=== PATIENT | female | born 1950 | race Caucasian/White ===

== ENCOUNTER 2017-08-26 16:21 | Emergency (ER) | payer OTHER ==
[2017-08-26 16:38] VITALS: TEMP 37; Ht 165.1 cm
--- NOTE | 2017-08-26 16:46 | EMERGENCY ROOM VISIT NOTE ---
History Report prepared by Umm: Theron Dash Under the Supervision of: Dr. Simeon Smith D.O. First contact with patient: 16:30 Chief Complaint: MENTAL HEALTH EVALUATION Stated Complaint: MR History of Present Illness The patient is a 66 year old female who presents to the Emergency Room with complaints of a persistent need for a mental health evaluation over the past few days. Per the psychiatric casework specialist, the patient is living at the [facility]. She was seen at [facility] earlier this afternoon after an appointment was made by [facility], and then the patient was sent from [facility] to here for inpatient treatment. The patient states that she has been feeling depressed recently, mostly because it is "that time of the year". She notes that the staff at the detention [facility] found a knife in the patient's room, and that prompted the patient to get further evaluation. The patient admits that she has had thoughts to hurt herself over the past few days , and says that she has had problems with these thoughts in the past a long time ago. She notes that in the past she has been admitted to a hospital ( including [facility]) for mental health. She says that she does take medications for her depression and anxiety, as well as for seizures and blood pressure. The patient denies any recent illnesses. She states that she does not smoke cigarettes, drink alcohol, or use recreational drugs. The patient notes a previous suicide attempt, when she took a razor and cut her throat. She denies ever hearing voices. Source of History: patient, other (psych casework specialist) Onset: Over past few days Position: other (global - need for mental health evaluation) Symptom Intensity: thoughts of hurting herself Quality: other (worsening depression) Timing: other (persistent) Note: Associated symptoms: Knife found in patient's room. Denies recent illnesses. Review of Systems See HPI for pertinent positives & negatives. A total of 10 systems reviewed and were otherwise negative. Past Medical & Surgical Medical Problems: (1) Bipolar disorder (2) Depression (3) HTN (hypertension) (4) Seizures Family History No pertinent family history Social History Smokeless Tobacco Use: No Marital Status: single Housing Status: assisted living Occupation Status: other (unknown) Current/Historical Medications Scheduled Acetaminophen (Tylenol), 650 MG PO TID Allopurinol (Zyloprim), 100 MG PO DAILY Bupropion HCl (Bupropion HCl Sr), 150 MG PO DAILY Calcium Carbonate (Antacid) (Saul-Gest Antacid), 1 TAB PO HS Divalproex Sodium (Depakote Er), 1,500 MG PO HS Furosemide (Lasix), 20 MG PO 1700 Furosemide (Lasix), 40 MG PO QAM Levothyroxine Sodium (Synthroid), 175 MCG PO DAILY Lurasidone Hcl (Latuda), 60 MG PO QPM Melatonin (Kp Melatonin), 6 MG PO HS Olanzapine (Zyprexa), 5 MG PO HS Oxybutynin Chloride (Oxybutynin Chloride ER), 5 MG PO HS Potassium Ext Rel (Klor-Con), 10 MEQ PO BID Propranolol (Inderal), 20 MG PO DAILY Allergies Coded Allergies: Meperidine (Unverified Allergy, Unknown, UNKNOWN, 08/26/17) Physical Exam Vital Signs Date Time Temp Pulse Resp B/P (MAP) Pulse Ox O2 Delivery O2 Flow Rate FiO2 08/26/17 23:26 64 18 163/94 96 Room Air 08/26/17 18:07 86 16 144/89 91 Room Air 08/26/17 16:38 37.0 84 16 119/92 96 Room Air Physical Exam GENERAL: Patient is awake, alert, anxious appearing. EYES: The conjunctivae are clear. The pupils are round and reactive. EARS, NOSE, MOUTH AND THROAT: The nose is without any evidence of any deformity. Mucous membranes are moist tongue is midline NECK: The neck is nontender and supple. RESPIRATORY: Normal respiratory effort is noted there is no evidence of wheezing rhonchi or rales CARDIOVASCULAR: Regular rate and rhythm noted there no murmurs rubs or gallops normal S1 normal S2 GASTROINTESTINAL: The abdomen is soft. Bowel sounds are present in all quadrants. Abdomen is nontender MUSCULOSKELETAL/EXTREMITIES: There is no evidence of gross deformity full range of motion is noted in the hips and shoulders SKIN: Pedal edema bilaterally. Skin was warm and dry. NEUROLOGIC: Patient is awake alert and oriented x3. PSYCH: Affect was flat. Patient makes good eye contact. Continues to admit to suicidal ideation with plan to cut herself. Medical Decision & Procedures Laboratory Results 08/26/17 17:22 Red Blood Count 4.21, Mean Corpuscular Volume 97.9, Mean Corpuscular Hemoglobin 31.4, Mean Corpuscular Hemoglobin Concent 32.0, Mean Platelet Volume 9.1, Neutrophils (%) (Auto) 60.8, Lymphocytes (%) (Auto) 29.2, Monocytes (%) (Auto) 8.1, Eosinophils (%) (Auto) 1.3, Basophils (%) (Auto) 0.3, Neutrophils # (Auto) 6.31, Lymphocytes # (Auto) 3.03, Monocytes # (Auto) 0.84, Eosinophils # (Auto) 0.14, Basophils # (Auto) 0.03 08/26/17 17:22 Test 08/26/17 17:22 08/26/17 17:40 White Blood Count 10.38 K/uL (4.8-10.8) Red Blood Count 4.21 M/uL (4.2-5.4) Hemoglobin 13.2 g/dL (12.0-16.0) Hematocrit 41.2 % (37-47) Mean Corpuscular Volume 97.9 fL (80-100) Mean Corpuscular Hemoglobin 31.4 pg (25-34) Mean Corpuscular Hemoglobin Concent 32.0 g/dl (32-36) Platelet Count 145 K/uL (130-400) Mean Platelet Volume 9.1 fL (7.4-10.4) Neutrophils (%) (Auto) 60.8 % Lymphocytes (%) (Auto) 29.2 % Monocytes (%) (Auto) 8.1 % Eosinophils (%) (Auto) 1.3 % Basophils (%) (Auto) 0.3 % Neutrophils # (Auto) 6.31 K/uL (1.4-6.5) Lymphocytes # (Auto) 3.03 K/uL (1.2-3.4) Monocytes # (Auto) 0.84 K/uL (0.11-0.59) Eosinophils # (Auto) 0.14 K/uL (0-0.5) Basophils # (Auto) 0.03 K/uL (0-0.2) RDW Standard Deviation 54.2 fL (36.4-46.3) RDW Coefficient of Variation 15.2 % (11.5-14.5) Immature Granulocyte % (Auto) 0.3 % Immature Granulocyte # (Auto) 0.03 K/uL (0.00-0.02) Anion Gap 7.0 mmol/L (3-11) Estimated GFR () 31.9 Estimated GFR (Non- 27.5 BUN/Creatinine Ratio 14.1 (10-20) Calcium Level 8.5 mg/dl (8.5-10.1) Total Bilirubin 0.3 mg/dl (0.2-1) Direct Bilirubin < 0.1 mg/dl (0-0.2) Aspartate Amino Transf (AST/SGOT) 13 U/L (15-37) Alanine Aminotransferase (ALT/SGPT) 29 U/L (12-78) Alkaline Phosphatase 79 U/L (45-117) Total Protein 7.3 gm/dl (6.4-8.2) Albumin 3.1 gm/dl (3.4-5.0) Thyroid Stimulating Hormone (TSH) 0.496 uIu/ml (0.300-4.500) Free Thyroxine 1.03 ng/dl (0.80-1.60) Valproic Acid (Depakene) Level 64 mcg/ml (50-100) Ethyl Alcohol mg/dL < 3.0 mg/dl (0-3) Urine Color YELLOW Urine Appearance CLEAR (CLEAR) Urine pH 7.0 (4.5-7.5) Urine Specific [place] 1.009 (1.000-1.030) Urine Protein NEG (NEG) Urine Glucose (UA) NEG (NEG) Urine Ketones NEG (NEG) Urine Occult Blood NEG (NEG) Urine Nitrite NEG (NEG) Urine Bilirubin NEG (NEG) Urine Urobilinogen NEG (NEG) Urine Leukocyte Esterase TRACE (NEG) Urine WBC (Auto) 1-5 /hpf (0-5) Urine RBC (Auto) 0-4 /hpf (0-4) Urine Hyaline Casts (Auto) 0 /lpf (0-5) Urine Epithelial Cells (Auto) 5-10 /lpf (0-5) Urine Bacteria (Auto) NEG (NEG) Urine Opiates Screen NEG (NEG) Urine Methadone, Qualitative NEG (NEG) Urine Barbiturates NEG (NEG) Urine Phencyclidine (PCP) Level NEG (NEG) Ur Amphetamine/Methamphetamine NEG (NEG) MDMA (Ecstasy) Screen POS (NEG) Urine Benzodiazepines Screen NEG (NEG) Urine Cocaine Metabolite NEG (NEG) Urine Marijuana (THC) NEG (NEG) Laboratory results per my review. ED Course 1635: The patient was evaluated in room A5. A complete history and physical examination were performed. 2200: Upon reevaluation, the patient is resting comfortably. I discussed the results and treatment plan with her. She verbalized agreement of the treatment plan. She was discharged home. Medical Decision Differential diagnosis: Etiologies such as mood disorder, infection, hypoglycemia, electrolyte abnormalities, cardiac sources, intracerebral event, toxicologic, neurologic, as well as others were entertained. Nursing notes reviewed. Additional history is obtained from the prehospital personnel. The patient is a 66-year-old female who presented to the emergency department for a mental health evaluation. The patient was having problems with depression as well as suicidal ideation. She's had similar episodes in the past. The patient was medically cleared in the emergency department and then evaluated by the mental health delegate. The patient was able to contract for safety. The patient currently resides in a detention facility. She was encouraged to continue all medications as prescribed. She was also encouraged to follow-up with her primary care physician and therapist as soon as possible. She was also encouraged to call crisis and return to the emergency department immediately if symptoms change worsen or the need arises. Medication Reconcilliation Current Medication List: was personally reviewed by me Blood Pressure Screening Patient's blood pressure: Normal blood pressure Impression Primary Impression: Depression Additional Impression: Suicidal ideation Scribe Attestation The scribe's documentation has been prepared under my direction and personally reviewed by me in its entirety. I confirm that the note above accurately reflects all work, treatment, procedures, and medical decision making performed by me. Departure Information Dispostion Home / Self-Care Referrals No Doctor, Assigned Patient Instructions ED Depression, My [facility] Additional Instructions Follow-up with your therapist as well as her primary care physician as soon as possible. All medications as prescribed. Call crisis or return to the emergency apartment immediately symptoms change worsen or the need arises. Problem Qualifiers Primary Impression: Depression Depression Type: unspecified Qualified Codes: F32.9 - Major depressive disorder, single episode, unspecified
[2017-08-26 17:41] LABS: BASO % 0.3 %; BASO ABS # 0.03 K/uL (0-0.2); COMPLETE YES; EOS % 1.3 %; HEMATOCRIT 41.2 % (37-47); IG% 0.3 %; LYMPH % 29.2 %; LYMPH ABS # 3.03 K/uL (1.2-3.4); MEAN CELL VOLUME 97.9 fL (80-100); MEAN CORPUSCULAR HEMOGLOBIN 31.4 pg (25-34); MEAN PLATELET VOLUME 9.1 fL (7.4-10.4); MONO % 8.1 %; NEUT % 60.8 %; PLATELET COUNT 145 K/uL (130-400); RED BLOOD COUNT 4.21 M/uL (4.2-5.4); WHITE BLOOD COUNT 10.38 K/uL (4.8-10.8)
[2017-08-26 17:56] LABS: URINE APPEARANCE CLEAR (CLEAR); URINE BILIRUBIN NEG (NEG); URINE COLOR YELLOW; URINE NITRITE NEG (NEG); URINE SPECIFIC GRAVITY 1.009 (1.000-1.030); UROBILINOGEN NEG (NEG)
[2017-08-26 17:57] LABS: MANUAL MICROSCOPIC REQUIRED? NO; REVIEW REQ? NO
[2017-08-26 17:59] LABS: ALT/SGPT 29 U/L (12-78); AST/SGOT 13 U/L (15-37); BLOOD UREA NITROGEN 26 mg/dl (7-18); BUN/CREATININE RATIO 14.1 (10-20); CALCIUM 8.5 mg/dl (8.5-10.1); CARBON DIOXIDE 29 mmol/L (21-32); CHLORIDE 102 mmol/L (98-107); CREATININE 1.85 mg/dl (0.60-1.20); GLUCOSE 96 mg/dl (70-99); POTASSIUM 4.4 mmol/L (3.5-5.1); SODIUM 138 mmol/L (136-145)
[2017-08-26 18:10] LABS: ALKALINE PHOSPHATASE 79 U/L (45-117); THYROID STIMULATING HORMONE 0.496 uIu/ml (0.300-4.500)
[2017-08-26 18:18] LABS: BENZODIAZEPINE, URINE NEG (NEG); COCAINE,URINE NEG (NEG); PHENCYCLIDINE, URINE NEG (NEG)
[2017-08-26] MEDS ORDERED: FURO-85 PO (18:24)
[2017-08-26] MEDS ORDERED: ALLO100T PO (18:24)
[2017-08-26] MEDS ORDERED: POTA20TA16 PO (18:24)
[2017-08-26] MEDS ORDERED: FRS/40 PO (18:24)
[2017-08-26] MEDS ORDERED: SYN175 PO (18:24)
[2017-08-26] MEDS ORDERED: ACET-1311 PO (18:24)
[2017-08-26] MEDS ORDERED: CALC1CHW PO (18:24)
[2017-08-26] MEDS ORDERED: OLAN-111 PO (18:24)
[2017-08-26] MEDS ORDERED: MELA1TAB5 PO (18:24)
[2017-08-26] MEDS ORDERED: LURA1TAB3 PO (18:24)
[2017-08-26] MEDS ORDERED: WLLSR150 PO (18:24)
[2017-08-26] MEDS ORDERED: DIVA500T3 PO (18:24)
[2017-08-26] MEDS ORDERED: OXYB1TAB31 PO (18:24)
[2017-08-26] MEDS ORDERED: PROP20TA67 PO (18:24)
[2017-08-26 23:26] VITALS: BP 163/94; PULSE 64; O2SAT 96
== END 2017-08-26 23:26 | disposition home or self-care (01) ==
LOC: C.EDA 16:23
DX: F32.9 Major depressive disorder, single episode, unspecified (principal); R45.851 Suicidal ideations; F31.9 Bipolar disorder, unspecified; I10 Essential (primary) hypertension; R56.9 Unspecified convulsions; Z79.899 Other long term (current) drug therapy